=== PATIENT | male | born 1965 | race Two or more races ===

== ENCOUNTER 2018-05-23 09:44 | Emergency (ER) | payer BC, OTHER ==
[~2018-05-23] VITALS: Ht 175.3 cm; Wt 70.3 kg
[2018-05-23 09:50] VITALS: BP 132/81
[2018-05-23] MEDS ORDERED: INDOMETHACIN 25 MG CAP PO ONE (10:15)
== END 2018-05-23 11:24 | disposition home or self-care (01) ==
LOC: ER 09:44
DX: M79.675 Pain in left toe(s) (principal)
CPT/HCPCS: 73610; 73630

== ENCOUNTER → 2018-10-29 | Emergency (ER) | payer OTHER | END | disposition left against medical advice (07) | LOC: ER 22:16 | DX: R22.0 Localized swelling, mass and lump, head (principal); Z53.21 Procedure and treatment not carried out due to patient leaving prior to being seen by health care provider ==

== ENCOUNTER 2020-10-09 20:18 | Emergency (ER) | payer SELFPAY ==
[~2020-10-09] VITALS: Ht 177.8 cm; Wt 72.6 kg
[2020-10-09] MEDS ORDERED: MIDAZOLAM HCL 5 MG/ML-1ML VIAL IM ONE (22:45)
[2020-10-09 23:10] LABS: Basophils # (auto) 0.1 10 ^3/uL (0-0.2); Basophils % (auto) 0.8 % (0.0-2.0); Eosinophils # (auto) 0 10 ^3/uL (0-0.8); Eosinophils % (auto) 0.4 % (0.0-7.0); Hematocrit 44.2 % (41.0-53.0); Hemoglobin 15.3 g/dL (13.5-17.5); Lymphocytes # (auto) 1.1 10 ^3/uL (0.4-5.4); Lymphocytes % (auto) 12.3 % (10.0-50.0); Mean Corpuscular Hemoglobin 32.6 pg (28.0-32.0); Mean Corpuscular Hgb Conc. 34.6 g/dL (32.0-36.0); Mean Corpuscular Volume 94.2 fL (80.0-100.0); Monocytes # (auto) 0.5 10 ^3/uL (0-1.3); Monocytes % (auto) 5.7 % (0.0-12.0); Neutrophils # (auto) 7.3 10 ^3/uL (1.6-8.6); Neutrophils % (auto) 80.8 % (37.0-80.0); Platelet Count (auto) 228 10^3/uL (140-450); Red Blood Cells 4.69 10^6/uL (4.5-5.90); Red Cell Distribution Width 13.1 % (11.8-14.3); White Blood Cell 9.1 10^3/uL (4.4-10.8)
[2020-10-09 23:25] LABS: Albumin 4.4 g/dL (3.4-5.0); Anion Gap 7 (5-15); Blood Urea Nitrogen 13 mg/dL (7-18); Carbon Dioxide 25 mmol/L (21-32); Chloride 107 mmol/L (98-107); Glucose 107 mg/dL (74-106); Potassium 3.5 mmol/L (3.5-5.1); Sodium 139 mmol/L (136-145)
[2020-10-09] MEDS ORDERED: GLUCAGON HYDROCHLORIDE (RDNA) 1 MG VIAL IV ONE (23:30)
[2020-10-09 23:31] LABS: Alanine Aminotransferase 21 U/L (16-61); Alkaline Phosphatase 77 U/L (45-117); Aspartate Aminotransferase 14 U/L (15-37); BUN/Creatinine Ratio 9.8; Bilirubin, Total 0.7 mg/dL (0.2-1.0); GFR African American 73 mL/min; GFR Non-African American 60 mL/min; Total Protein 8.5 g/dL (6.4-8.2)
[2020-10-10 01:30] VITALS: BP 110/66
== END 2020-10-10 02:05 | disposition home or self-care (01) ==
LOC: EDBD 20:18 → ER 20:24
DX: T18.128A Food in esophagus causing other injury, initial encounter (principal); X58.XXXA Exposure to other specified factors, initial encounter; Y93.89 Activity, other specified; Y92.89 Other specified places as the place of occurrence of the external cause; Y99.8 Other external cause status
CPT/HCPCS: 36415; 71250; 80053; 84484; 85025; 93005; 96372; 96374; 99285; J1610; J2250

== ENCOUNTER 2021-03-31 00:01 | Emergency (ER) | payer MEDICAID ==
[~2021-03-31] VITALS: Ht 175.3 cm; Wt 70.3 kg
[2021-03-31 03:53] VITALS: BP 129/87
[2021-03-31] MEDS ORDERED: KETOROLAC TROMETH 60MG/2ML VIAL IM ONE (04:00)
== END 2021-03-31 04:40 | disposition home or self-care (01) ==
LOC: ER 00:01
DX: L03.115 Cellulitis of right lower limb (principal)
CPT/HCPCS: 73700; 96372; 99284; J1885